=== PATIENT | female | born 1960 | race Caucasian/White ===

== ENCOUNTER 2017-11-18 11:24 | Emergency (ER) | payer OTHER, SELFPAY ==
[2017-11-18 11:25] VITALS: BP 121/80; PULSE 91; RESP 24; TEMP 36.1; O2SAT 94; BMI 36.3
--- NOTE | 2017-11-18 11:39 | RAD_ITS ---
STUDY: X-RAY CHEST REASON FOR EXAM: Female, 56 years old. Productive cough. Vomiting. TECHNIQUE: PA and lateral views of the chest. COMPARISON: None. FINDINGS: The lungs are clear and expanded. Scattered calcified granulomas. There is no demonstrated pleural abnormality. Normal size heart. Normal mediastinum and selena. Normal visualized pulmonary arteries. Normal visualized aortic arch and descending thoracic aorta. There are diffuse degenerative changes of the visualized thoracic spine. Normal visualized ribs, clavicles, and shoulders. There is no demonstrated abnormality of the visualized soft tissue structures of the upper abdomen. RAD/Chest PA and Lateral IMPRESSION: No acute abnormality is seen. Electronically Signed: Maynor Valdez MD at 12:40 EDT Tel [phone], Service support ,
--- NOTE | 2017-11-18 13:31 | ED.VISSUMM ---
- ER Visit Summary Date of Service: 11/18/17 Chief Complaint: Cough History of Present Illness: The patient is a 56 F with cough for the past week. It has become productive of white sputum. She is currently being worked up for a possible malignancy at the cancer center at [facility]. She is scheduled for a CT scan next week. She has no complaints related to this and states that her symptoms are all upper respiratory at this time with a cough. She denies chest pain or weakness. No fever or chills. No night sweats. Physical Examination: Vitals are within normal limits. Pulse ox is 94% on room air. She is not in distress. She has faint end expiratory wheezing bilaterally but is not in respiratory distress. She has no rash. No abdominal tenderness. Test Results: Two-view chest x-ray negative Emergency Department Course and Treatment: No evidence of pneumonia on CT scan. No fever here. Pulse ox is normal. She states that she had recent laboratory tests that were normal. She looks well. Not in distress. She was given a DuoNeb with improvement of her wheezing. Given her well appearance, I feel that she can safely be discharged home on oral antibiotics with close follow-up. She will see her doctor on Tuesday and return to the hospital if worse before then Treatment Plan: Oral doxycycline and an inhaler Disposition: Home stable Impression: Initial encounter acute lower respiratory tract infection This note was generated with [employer] dictation software. It may contain incorrect words, spelling, and punctuation that were not noted in review of the chart prior to signing ED Disposition - Plan for ED Patient: Chief Complaint: Cough Instructions: Acute Bronchitis Prescriptions: Albuterol Inhaler [Ventolin Hfa] 1 - 2 puff INHALATION Q4H PRN PRN #1 inhaler PRN Reason: Wheezing Doxycycline Monohydrate 100 mg PO BID #20 capsule Referrals: [facility] Doctor,Out of [Primary Care Provider] -
--- NOTE | 2017-11-18 13:35 | ED.DCSUM_ITS ---
- ER Visit Summary Date of Service: 11/18/17 Chief Complaint: Cough History of Present Illness: The patient is a 56 F with cough for the past week. It has become productive of white sputum. She is currently being worked up for a possible malignancy at the cancer center at [facility]. She is scheduled for a CT scan next week. She has no complaints related to this and states that her symptoms are all upper respiratory at this time with a cough. She denies chest pain or weakness. No fever or chills. No night sweats. Physical Examination: Vitals are within normal limits. Pulse ox is 94% on room air. She is not in distress. She has faint end expiratory wheezing bilaterally but is not in respiratory distress. She has no rash. No abdominal tenderness. Test Results: Two-view chest x-ray negative Emergency Department Course and Treatment: No evidence of pneumonia on CT scan. No fever here. Pulse ox is normal. She states that she had recent laboratory tests that were normal. She looks well. Not in distress. She was given a DuoNeb with improvement of her wheezing. Given her well appearance, I feel that she can safely be discharged home on oral antibiotics with close follow-up. She will see her doctor on Tuesday and return to the hospital if worse before then Treatment Plan: Oral doxycycline and an inhaler Disposition: Home stable Impression: Initial encounter acute lower respiratory tract infection This note was generated with [employer] dictation software. It may contain incorrect words, spelling, and punctuation that were not noted in review of the chart prior to signing ED Disposition - Plan for ED Patient: Chief Complaint: Cough Instructions: Acute Bronchitis Prescriptions: Albuterol Inhaler [Ventolin Hfa] 1 - 2 puff INHALATION Q4H PRN PRN #1 inhaler PRN Reason: Wheezing Doxycycline Monohydrate 100 mg PO BID #20 capsule Referrals: [facility] [address] Doctor,Out of [Primary Care Provider] -
[2017-11-18 13:40] VITALS: PULSE 92; RESP 16
[2017-11-18] MEDS: Ipratropium/Albuterol Sulfate 3 ML AMPUL.NEB INHALATION (13:40)
[2017-11-18 13:49] VITALS: BP 142/90; PULSE 98; RESP 20; O2SAT 100
[2017-11-18] MEDS: Doxycycline 100 MG CAPSULE PO (13:49)
== END 2017-11-18 13:54 | disposition home or self-care (01) ==
PROVIDERS: Emergency Provider Emergency Medicine
DX: J22 Unspecified acute lower respiratory infection (principal); I10 Essential (primary) hypertension; Z87.891 Personal history of nicotine dependence
CPT/HCPCS: 71046; 94640; 99283